=== PATIENT | male | born 1960 | race Caucasian/White ===

== ENCOUNTER 2016-09-03 20:23 | Emergency (ER) | payer OTHER ==
[~2016-09-03] VITALS: Ht 185.4 cm; Wt 114.0 kg
[~2016-09-03 20:23] MED LIST: HYDR-3498 PO
[2016-09-03 20:25] VITALS: Ht 185.4 cm; Wt 114.0 kg
[2016-09-03] MEDS ORDERED: KETOROLAC 30 MG INJ IV STA (20:57)
[2016-09-03] MEDS ORDERED: ONDANSETRON 4 MG INJ IV STA (20:57)
--- NOTE | 2016-09-03 20:57 | ERD ---
ER Documentation Chief Complaint Date/Time DATE: 09/03/16 TIME: 20:56 Chief Complaint Right flank pain, Dysuria and blood in the urine. per verbatum HPI 56-year-old male who presents to the emergency room for right flank pain started about 2 hours ago. Pain was described as sharp nonradiating with pain rate of 8/10. Stated that he had this before when he had a right kidney stone about 5-7 months ago. He also reports dysuria and blood in urine. Denies headache, loss of consciousness, dizziness, blurry vision, changes in vision, photophobia, facial pain, ear pain, throat pain, difficulty swallowing, neck pain, shoulder pain, chest pain, cough, hemoptysis, abdominal pain, loss of appetite, hematochezia, diarrhea, constipation, urinary symptoms, bladder and bowel incontinences, extremity weakness, extremity tenderness, numbness or tingling sensation, difficulty walking, recent travel, recent exposure to illness, recent antibiotic use in the last 3 months, fever, chills. Allergy: No known drug allergies. PMH: Diabetes, hyperlipidemia, right kidney stone. Medications: Metformin, simvastatin. Surgery: Denies. Family history: Denies. 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 Denies smoking, use of alcohol, use of illegal drugs. ROS All systems reviewed and are negative except as per history of present illness. Medications Home Meds Active Scripts Hydrocodone/Acetaminophen ([place] 7.5-325 Tablet) 1 Each Tablet, 1 EACH PO every 4 hours Y for PAIN, #20 TAB Prov:PASILABAN,KLAR F 09/03/16 Ondansetron Hcl* (Zofran*) 4 Mg Tablet, 4 MG PO Q8H Y for NAUSEA AND/OR VOMITING , #30 TAB Prov:PASILABAN,KLAR F 09/03/16 Tamsulosin Hcl* (Flomax*) 0.4 Mg Cap.er.24h, 0.4 MG PO QPM, #30 CAP Prov:PASILABAN,KLAR F 09/03/16 Hydrocodone Bit-Acetaminophen* ([place]*) 5-325 Mg Tab, 1 TAB PO Q6 Y for PAIN, # 7 TAB Prov:SHARI VITALE MD 08/15/15 Allergies Allergies: Coded Allergies: No Known Allergy (Unverified , 08/15/15) PMhx/Soc Hx Miscellaneous Medical Probl: Yes (cholesterol and hypoglycemia) Hx Alcohol Use: No Hx Substance Use: No Hx Tobacco Use: No Physical Exam Vitals Vital Signs Date Time Temp Pulse Resp B/P Pulse Ox O2 Delivery O2 Flow Rate FiO2 09/03/16 20:25 97.6 77 20 121/78 98 Physical Exam CONSTITUTIONAL: Well-appearing; well-nourished; in no apparent distress. HEAD: Normocephalic; atraumatic. EYES: Conjunctiva clear, sclera non-icteric, EOM intact. PERRL Ears: Hearing intact. EACs clear, TMs non-bulging, non-inflamed, translucent & mobile, ossicles normal appearance, No obstructions, no erythema, no discharges Nose: No obstructions. No polyps. No external lesions. Mucosa non-inflamed. No external lesions, septum and turbinates normal. No rhinorrhea. No discharges. Frontal sinus is non-tender to palpation. Maxillary sinus is non-tender to palpation. MOUTH: Moist mucous membranes, no lesion, no obstructions, no vesicles, no thrush, patent airway Throat: Uvula in midline. Right tonsil is +1 with no erythema, no exudate. Left tonsil is +1 with no erythema, no exudate. Tolerating secretions well. Good gag reflex. Patent airway. Neck: Supple, without lesions, bruits, or adenopathy. No mass. Thyroid non- enlarged and non-tender to palpation. CHEST: Symmetrical chest. Respirations even and not labored. No retractions noted. CARDIOVASCULAR: Normal S1, S2. RRR. No murmurs, gallops. RESPIRATORY: Normal chest excursion with respiration; breath sounds clear and equal bilaterally; no wheezes, rhonchi, or rales. Breathing even and unlabored. Speaking in clear, full, and complete sentences w/ ease. ABDOMEN: Normal bowel sounds normal. Soft, round, non-distended, non-guarding, no tenderness, no rebound, no organomegaly, no masses, no pulsating abdominal mass. No hernia. No peritoneal signs. : Right CVA tenderness. BACK: Symmetrical shoulder. Spine is midline without deformity, tenderness. No evidence of trauma or deformity. PELVIS: Stable pelvis. No evidence of trauma or deformity. MUSCULOSKELETAL: Normal gait and station. No misalignment, asymmetry, crepitation, defects, tenderness, masses, effusions, decreased range of motion, instability, atrophy or abnormal strength or tone in the head, neck, spine, ribs , pelvis or extremities. No calf tenderness. NEUROVASCULAR: Distal pulses are present. Pedal pulse are present, equal, and normal. Capillary refills are < 2 seconds. NEUROLOGIC: Alert and oriented x4. Speaks full and clear sentences. Cranial Nerves II-XII normal. Sensation to pain, touch, and proprioception normal. Grossly unremarkable. No neurologic deficits. Romberg test is negative. PSYCHOLOGICAL: The patients mood and manner are appropriate. No hallucinations , delusions. Not SI. Not HI. Has the capacity to decide for self SKIN: Normal for age and ethnicity; warm; dry; good turgor; no apparent lesions or exudates. No rashes, hives, discoloration. Intact. Result Diagram: 09/03/16211509/03/162115 Results 24 hrs Laboratory Tests Test 09/03/16 21:16 White Blood Count 11.510^3/ul Red Blood Count 5.1110^6/ul Hemoglobin 15.5g/dl Hematocrit 44.7% Mean Corpuscular Volume 87.5fl Mean Corpuscular Hemoglobin 30.3pg Mean Corpuscular Hemoglobin Concent 34.7g/dl Red Cell Distribution Width 14.1% Platelet Count 20744^3/UL Mean Platelet Volume 9.1fl Neutrophils % 73.8% Lymphocytes % 18.0% Monocytes % 6.7% Eosinophils % 0.9% Basophils % 0.3% Nucleated Red Blood Cells % 0.0/100WBC Neutrophils # 8.510^3/ul Lymphocytes # 2.110^3/ul Monocytes # 0.810^3/ul Eosinophils # 0.110^3/ul Basophils # 0.010^3/ul Nucleated Red Blood Cells # 0.010^3/ul Urine Color LT. YELLOW Urine Clarity SLIGHTLY CLOUDY Urine pH 6.0 Urine Specific [place] 1.010 Urine Ketones NEGATIVE Urine Nitrite NEGATIVE Urine Bilirubin NEGATIVE Urine Urobilinogen 1.0 E.U./dL Urine Leukocyte Esterase NEGATIVE Urine Microscopic RBC >50/HPF Urine Microscopic WBC 0-2/HPF Urine Epithelial Cells FEW Urine Bacteria FEW Urine Hemoglobin 3+ Urine Glucose NEGATIVE% Urine Total Protein NEGATIVE Sodium Level 140mmol/L Potassium Level 3.7mmol/L Chloride Level 101mmol/L Carbon Dioxide Level 27mmol/L Anion Gap 16 Blood Urea Nitrogen 12mg/dl Creatinine 0.58mg/dl Glucose Level 107mg/dl Calcium Level 9.2mg/dl Total Bilirubin 0.9mg/dl Direct Bilirubin 0.00mg/dl Indirect Bilirubin 0.9mg/dl Aspartate Amino Transf (AST/SGOT) 33IU/L Alanine Aminotransferase (ALT/SGPT) 43IU/L Alkaline Phosphatase 56IU/L Total Protein 8.0g/dl Albumin 4.6g/dl Globulin 3.40g/dl Albumin/Globulin Ratio 1.35 Amylase Level 52U/L Lipase 181U/L Current Medications Medications (Trade) Dose Ordered Sig/Omero Route PRN Reason Start Time Stop Time Status Last Admin Dose Admin Ketorolac Tromethamine (Toradol) 30 mg ONCE STAT IV 09/03/16 20:57 09/03/16 21:02 DC 09/03/16 21:48 Ondansetron HCl 4 mg 4 mg ONCE STAT IV 09/03/16 20:57 09/03/16 21:02 DC 09/03/16 21:47 Sodium Chloride (NS) 1,000 ml @ 1,000 mls/hr Q1H ONCE IV 09/03/16 21:00 09/03/16 21:59 DC 09/03/16 21:48 Procedures/MDM Examination: Please see physical examination. Disease process, medical treatment was explained to the patient and family member. They verbalized understanding and agreed with the diagnostic tests, medical treatment, and follow-up care. Radiology: CT of the abdomen/pelvis without IV contrast Impression: Bilateral nonobstructing lower pole renal calculi. Mild retained stool without obstruction. No CT evidence for appendicitis. Minimal sigmoid diverticulosis. Mild degenerative changes within the spine. Blood works: Reviewed. Urinalysis: Reviewed. Treatment: IV insertion. Normal saline 1 L. Toradol IV. Zofran IV. Re-evaluation: Patient is alert and 4. Denies headache, dizziness, blurry vision, neck pain, shoulder pain, chest pain, back pain, abdominal pain. No right upper abdominal tenderness on palpation. No right lower abdominal tenderness on palpation. No peritoneal signs. No nausea and vomiting. Ambulatory with steady gait. Consultation: None. Differential diagnosis: Abdominal aortic aneurysm versus nephrolithiasis versus pyelonephritis versus urinary tract infection versus lumbar strain Medical decision makin-year-old male who presents to the emergency room for right flank pain started about 2 hours ago. Pain was described as sharp nonradiating with pain rate of 8/10. Stated that he had this before when he had a right kidney stone about 5-7 months ago. He also reports dysuria and blood in urine. Patient's complaint, patient's history about his complaint, my physical findings, diagnostic test results, my reevaluation are consistent with final diagnosis of nonobstructing nephrolithiasis, constipation. Medications prescribed are the following: Flomax. [place]. Zofran. Patient and family member are made aware of the side effects and adverse reactions of the medications prescribed. Instructed on when to seek emergent and medical attention in case allergic/anaphylactic reactions or severe side effects and or adverse reactions to medications. Patient and family member verbalized understanding. Patient instructed Instructed to follow-up with his PCP in 24-48 hours. PCP to refer patient to urologist. Instructed to Call 911 for chest pain, shortness of breath. Advised to come back here in ED as soon as possible for severity of symptoms which includes but not limited to: any new symptoms; shortness of breath/difficulty of breathing; cardiovascular changes; severe gastrointestinal symptoms; signs and symptoms of bleeding and or infection; signs of compartment syndrome/neurovascular changes; neurological changes/deficits. Patient and family member verbalized understanding. Upon discharge, patient is alert and oriented x 4, speaks full and clear sentences, denies pain, has no neurological deficits, has no neurovascular deficits, difficulty of breathing. Breathing even and unlabored. Lung sounds are clear to auscultation. Not in distress. Appears comfortable. Ambulatory with steady gait. Appears satisfied with care provided here in ED. Departure Diagnosis: Primary Impression: Kidney stone on right side Condition: Stable Additional Instructions: Patient instructed Instructed to follow-up with his PCP in 24-48 hours. PCP to refer patient to urologist. Patient stated that he make sure to see his own PCP and have his PCP refer him to a urologist. Instructed to Call 911 for chest pain, shortness of breath. Advised to come back here in ED as soon as possible for severity of symptoms which includes but not limited to: any new symptoms; shortness of breath/difficulty of breathing; cardiovascular changes; severe gastrointestinal symptoms; signs and symptoms of bleeding and or infection; signs of compartment syndrome/neurovascular changes; neurological changes/deficits. Patient and family member verbalized understanding. EMMA REBOLLEDO Sep 03, 2016 20:57
[2016-09-03] MEDS ORDERED: SOD CHLORIDE 0.9% 1,000 ML IV ONE (21:00)
[2016-09-03 21:44] LABS: ADD SCAN DIFF NO
[2016-09-03 21:45] LABS: BASOPHILS % 0.3 % (0.0-2.0); EOSINOPHILS # 0.1 10^3/ul (0.0-0.5); EOSINOPHILS % 0.9 % (0.0-7.0); HEMATOCRIT 44.7 % (42.0-52.0); HEMOGLOBIN 15.5 g/dl (14.0-18.0); LYMPHOCYTES # 2.1 10^3/ul (0.8-2.9); MEAN CORPUSCULAR HEMOGLOBIN 30.3 pg (29.0-33.0); MEAN CORPUSCULAR HGB CONC 34.7 g/dl (32.0-37.0); MEAN CORPUSCULAR VOLUME 87.5 fl (82.0-101.0); MEAN PLATELET VOLUME 9.1 fl (7.4-10.4); MONOCYTE # 0.8 10^3/ul (0.3-0.9); MONOCYTES % 6.7 % (0.0-11.0); NEUTROPHIL # 8.5 10^3/ul (1.6-7.5); NEUTROPHILS % 73.8 % (39.0-77.0); PLATELET COUNT 292 10^3/UL (140-415); RED BLOOD COUNT 5.11 10^6/ul (4.70-6.10); RED CELL DISTRIBUTION WIDTH 14.1 % (11.5-14.5); WHITE BLOOD COUNT 11.5 10^3/ul (4.8-10.8)
[2016-09-03 22:02] LABS: ALBUMIN 4.6 g/dl (3.3-4.9); POTASSIUM 3.7 mmol/L (3.5-5.1)
[2016-09-03 22:03] LABS: ADD UMIC YES; URINE BILIRUBIN (Dip) NEGATIVE (NEGATIVE); URINE BLOOD (Dip) 3+ (NEGATIVE); URINE COLOR LT. YELLOW (YELLOW); URINE GLUCOSE (Dip) NEGATIVE (NEGATIVE); URINE KETONES (Dip) NEGATIVE (NEGATIVE); URINE LEUKOCYTE ESTERASE (Dip) NEGATIVE (NEGATIVE); URINE NITRITE (Dip) NEGATIVE (NEGATIVE); URINE TOTAL PROTEIN (Dip) NEGATIVE (NEGATIVE); URINE UROBILINOGEN (Dip) 1.0 E.U./dL (0.1-1.0)
[2016-09-03 22:05] LABS: ALBUMIN/GLOBULIN RATIO 1.35; BILIRUBIN,INDIRECT 0.9 mg/dl (0-1.1); BILIRUBIN,TOTAL 0.9 mg/dl (0.2-1.3); CALCIUM 9.2 mg/dl (8.4-10.2); CREATININE 0.58 mg/dl (0.61-1.24)
[2016-09-03 22:14] LABS: BACTERIA,URINE FEW; URINE RBCS >50 /HPF (0)
--- NOTE | 2016-09-03 23:04 | RADRPT ---
PROCEDURE: CT ABDOMEN/PELVIS WITHOUT CONTRAST CLINICAL INDICATION: 56-year-old male with right-sided flank pain. TECHNIQUE: The study was performed utilizing a [employer] V[employer] 64-slice CT scanner. Direct axia l sections were obtained through the abdomen and pelvis without the use of intravenous contrast mate rial. Sagittal and coronal reformations were obtained. One or more of the following dose reduction t echniques were utilized: automated exposure control, adjustment of the mA and/or kV according to pat ient's size or use of iterative reconstruction technique. The images were reviewed on a PACS workst [employer]. CTD/vol = 23.2 mGy; Total Exam DLP = 1508.7 mGy-cm. COMPARISON: CT abdomen/pelvis August 15, 2015. FINDINGS: There is minimal bibasilar subsegmental atelectasis.. There is no evidence for significant pleural effusion. The liver has a normal size and contour. There is mild diffuse decreased density through out the liver suggestive of fatty infiltration but without focal areas of abnormal density. No intra hepatic nor extrahepatic biliary ductal dilatation is seen. The gallbladder demonstrates no wall thi ckening nor pericholecystic fluid. No biliary stones are evident. The pancreas is without areas of a bnormal attenuation. The spleen is identified and has a normal size without abnormal density. The a drenal glands are unremarkable. There is a nonobstructing right lower pole renal calculus measuring 4 x 3 mm. There is a nonobstructing left lower pole renal calculus measuring 5 x 4 mm. There is no evidence for obstructive uropathy. The urinary bladder contains urine. There is mild retained stoo l within the colon without obstruction. The appendix is diminutive but without abnormal thickening or surrounding inflammatory reaction. There are multiple small diverticula within the sigmoid colon without surrounding inflammatory changes. The prostate is mildly prominent with small calcifications within it. The aortoiliac vessels are minimally calcified but without aneurysmal dilatation. Mild d egenerative changes are present within the spine. IMPRESSION: 1. Bilateral nonobstructing lower pole renal calculi. 2. Mild retained stool without obstruction. 3. No CT evidence for appendicitis. 4. Minimal sigmoid diverticulosis. 5. Mild degenerative changes within the spine. .Reinaldo Dunn MD, MD Date Time Electronically viewed and signed by .Reinaldo Dunn MD, on 09/03/2016 23:03 .M/
[2016-09-03] MEDS ORDERED: TAMS-14 PO (23:43)
[2016-09-03] MEDS ORDERED: ONDA4TAB8 PO (23:44)
[2016-09-03] MEDS ORDERED: HYDR-905 PO (23:44)
[2016-09-04] VITALS: BP 105/65; PULSE 70; RESP 16
== END 2016-09-04 | disposition home or self-care (01) ==
LOC: FTE 20:23
DX: N20.0 Calculus of kidney (principal); E11.9 Type 2 diabetes mellitus without complications; Z79.84 Long term (current) use of oral hypoglycemic drugs
CPT/HCPCS: 36415; 74176; 80053; 81001; 81003; 82150; 83690; 85025; 87086; 96374; 96375; J1885; J2405; J7030; Z7502

== ENCOUNTER 2017-05-29 14:24 | Emergency (ER) | END 2017-05-29 17:00 | disposition home or self-care (01) ==

== ENCOUNTER 2017-07-25 02:12 | Emergency (ER) | END 2017-07-25 07:20 | disposition home or self-care (01) ==